=== PATIENT | female | born 1990 | race American Indian/Alaskan Native ===

== ENCOUNTER 2024-10-05 02:34 | Emergency (ER) | payer SELFPAY ==
[2024-10-05 02:34] VITALS: BMI 39.8
[2024-10-05 02:49] VITALS: BP 134/85; PULSE 70; RESP 16; TEMP 36.8; O2SAT 97
--- NOTE | 2024-10-05 03:05 | PD.EDBACK ---
ED Back Injury Pain RME/HPI General Chief Complaint: Back Pain/Injury Stated Complaint: SCIATIC NERVE PAIN Time Seen by Provider: 10/05/24 02:52 Arrival date/time: 10/05/24 02:34 34F with history of sciatica presents to ED with 2 days of low back pain that radiates down both legs. Patient states this feels similar to previous sciatic flares. Patient denies fall/trauma, paresthesia, bowel/bladder incontinence, hematuria/dysuria, leg swelling, and SOB. Limitations: no limitations Related Data Previous Rx's ?Medication ?Instructions ?Recorded cyclobenzaprine 5 mg tablet 5 mg PO TID PRN muscle spasm #30 10/05/24 tabs Allergies Allergy/AdvReac Type Severity Reaction Status Date / Time No Known Allergies Allergy Verified 10/05/24 02:36 Review of Systems Review of Systems Systems Reviewed: All systems reviewed, normal except as documented Constitutional Constitutional: Reports system reviewed and no additional complaints, except as documented, Denies fever(s) and Denies headache(s) ENT Ears, Nose, Mouth, and Throat: Denies disequilibrium and Denies headache(s) Cardiovascular Cardiovascular: Reports system reviewed and no additional complaints, except as documented, Denies chest pain and Denies dyspnea Respiratory Respiratory: Reports system reviewed and no additional complaints, except as documented, Denies cough and Denies dyspnea Gastrointestinal Gastrointestinal: Reports system reviewed and no additional complaints, except as documented, Denies abdominal pain, Denies nausea and Denies vomiting Musculoskeletal Musculoskeletal: Reports as per HPI, Reports back pain and Reports radiating pain into limb Neurologic Neurologic: Reports system reviewed and no additional complaints, except as documented, Denies confusion, Denies disequilibrium and Denies headache(s) Psychiatric Psychiatric: Denies confusion Past Medical History Social History SMOKING STATUS: Never smoker ED Exam General Limitations: Present no limitations General appearance: Present alert and in no apparent distress Head Head exam: Present atraumatic Eye Eye exam: Present normal appearance, PERRL and EOMI ENT ENT exam: Present normal exam, normal oropharynx and mucous membranes moist Neck Neck exam: Present normal inspection, full ROM and trachea midline Chest Chest inspection: Present normal inspection and symmetric chest wall rise Respiratory Respiratory exam: Present normal lung sounds bilaterally Cardiovascular Cardiovascular exam: Present regular rate, normal rhythm and normal heart sounds Abdominal Exam Abdominal exam: Present soft and normal bowel sounds Extremities Exam Extremities exam: Present normal inspection and full ROM Back Exam Back exam: Present normal inspection and full ROM Neurological Exam Neurological exam: Present alert, oriented X3 and CN II-XII intact Psychiatric Psychiatric exam: Present normal affect and normal mood Skin Skin exam: Present warm, dry, intact and normal color Course Quality Measures none Orders Category Date Time Status CYCLObenzaPRINE [Flexeril] Med 10/05/24 04:12 Discontinued 5 mg PO X1 ONE Gabapentin [Neurontin] Med 10/05/24 02:53 Discontinued 300 mg PO X1 ONE Ketorolac Inj [Toradol Inj] Med 10/05/24 02:53 Discontinued 60 mg IM X1 ONE Vital Signs Vital signs: Vital Signs Temperature 98.3 F 10/05/24 02:49 Pulse Rate 70 10/05/24 02:49 Respiratory Rate 16 10/05/24 02:49 Blood Pressure 134/85 H 10/05/24 02:49 Pulse Oximetry (%) 97 10/05/24 02:49 Oxygen Delivery Method Room Air 10/05/24 02:49 O2 at 97% on RA and WNLs Back Pain / Injury MDM Narrative MDM Narrative:: 34F with history of sciatica presents to ED with 2 days of low back pain that radiates down both legs. Patient states this feels similar to previous sciatic flares. Patient denies fall/trauma, paresthesia, bowel/bladder incontinence, hematuria/dysuria, leg swelling, and SOB. Physical exam reveals no back tenderness. Pain is with ROM, which is mostly intact. Gait normal. Normal lower extremity exam. Patient is afebrile, calm, and alert. Meds improved symptoms. Patient data External records reviewed:: [facility] previous records Clinical information provided by:: patient Social determinants that could affect healthcare access:: none Patient has the following chronic illnesses:: none How is presenting disease/condition affected by chronic disease/condition?: no chronic disease Evaluation data The following diagnostics were reviewed and interpreted by me:: other (specify) (none) Lab and/or radiology exams considered but not ordered:: not ordered Interpretation Summary: n/a Medications / Prescriptions Medications or Prescriptions considered but not ordered:: ordered Medication administrations:: Medication Administration History Discontinued Medications Cyclobenzaprine HCl (Cyclobenzaprine 5 Mg Tablet) 5 mg PO X1 ONE Stop: 10/05/24 04:13 Last Admin: 10/05/24 04:20 Dose: 5 mg Documented By: MELY Gabapentin (Gabapentin 300 Mg Capsule) 300 mg PO X1 ONE Stop: 10/05/24 02:54 Last Admin: 10/05/24 03:09 Dose: 300 mg Documented By: MELY Ketorolac Tromethamine (Ketorolac Inj 60 Mg/2 Ml Vial) 60 mg IM X1 ONE Stop: 10/05/24 02:54 Last Admin: 10/05/24 03:09 Dose: 60 mg Documented By: MELY above Consultations Consultation(s) initiated? (list below): No Diagnosis Differential diagnosis back pain/injury: lumbar radiculopathy, sciatica, strain of lumbar region, renal colic, pyelonephritis, thoracic back pain, AAA and discitis Most likely diagnosis given after review of the tests above:: sciatica Admission Indicated Admission indicated?: not indicated Admission Request Was there a request for admission?: No Disposition Plan Disposition Plan: Discharge Discharge Attestation Discharge Attestation: The patient and all family members were given an opportunity to ask questions and understood the discharge instructions. Discharge instructions specifically effects, indications for sooner follow up or return to the emergency department, and the expected course of current diagnosis. Patient condition: Stable Discharge Plan Plan Patient Disposition: HOME (Self Care) Disposition Comment: STable Prescriptions/Referrals Prescriptions/Med Rec: New cyclobenzaprine 5 mg tablet 5 mg PO TID PRN (Reason: muscle spasm) Qty: 30 0RF Problem List Clinical Impression: Sciatica Patient/Caregiver Discharge Instructions Education Materials: ED Sciatica Additional Instructions: Please follow-up with PCP within 24-48 hours and return immediately if symptoms worsen. If problem persists, recommend outpatient PT and/or MRI follow-up. In the meantime, rest, use ice/heat, and/or compression. Print Language: [place] Stand Alone Forms: Patient Portal Info Letter PA/MULTIMEDIA PROJECT MANAGER Supervising Physician ISHMAEL/MULTIMEDIA PROJECT MANAGER Supervising Physician: Dr. Dobson
[2024-10-05] MEDS: KETOROLAC INJ 60 MG/2 ML VIAL IM (03:09)
[2024-10-05] MEDS: GABAPENTIN 300 MG CAPSULE PO (03:09)
[2024-10-05] MEDS: CYCLObenzaPRINE 5 MG TABLET PO (04:20)
== END 2024-10-05 05:11 | disposition home or self-care (01) ==
LOC: SERX 07:25
PROVIDERS: Emergency Provider Emergency Medicine
DX: M54.42 Lumbago with sciatica, left side (principal); M54.41 Lumbago with sciatica, right side
CPT/HCPCS: 96372; 99283; J1885; A9270

== ENCOUNTER 2024-10-07 01:55 | Emergency (ER) | payer BC, SELFPAY ==
[2024-10-07 01:55] VITALS: BMI 38.9
[2024-10-07 02:50] VITALS: BP 138/89; PULSE 72; RESP 17; TEMP 37; O2SAT 97
--- NOTE | 2024-10-07 03:19 | XR_ITS ---
Examination: CT lumbar spine, without contrast. 2-D sagittal reconstructions. 2-D coronal reconstructions. 3-D reconstructions. Date and time of exam:October 07, 2024 0451 hours INDICATIONS: Onset lower back pain beginning 5 days ago CTDI: vol (mGy):33.6 DLP: (mGycm):898 Technique: Multiple 1.25 mm axial sections of the lumbar spine without intravenous contrast have been obtained. 2-D sagittal and coronal reconstructions have been obtained. 3-D reconstructions have been obtained. Low dose protocols were performed. One or more of the following dose reduction techniques were used; automated exposure control, adjustment of the mA and/or KV according to patient size, use of iterative reconstruction technique. Findings: Adequate alignment lumbar vertebral bodies Mild disc narrowing L3-L4, L4-L5 No lumbar fracture No spondylolisthesis Lumbar pedicles laminated transverse and posterior spinous processes intact L5-S1 4 mm central lumbar disc bulge contiguous with the bilateral S1 nerve roots L4-L5 6 mm right paracentral disc bulge displacing the right L5 nerve root More cephalad levels unremarkable IMPRESSION: No lumbar fracture L5-S1 4 mm central lumbar disc bulge contiguous with the right and left S1 nerve roots L4-L5 6 mm right paracentral disc bulge displacing the right L5 nerve root
--- NOTE | 2024-10-07 03:26 | PD.EDRME ---
Rapid Medical Screening Exam [facility] Arrival date/time: 10/07/24 01:55 34F with history of sciatica presents to ED with several days of low back pain that radiates down both legs. Patient states this feels similar to previous sciatic flares including yesterday (under different ). Patient states while meds helped initially ED, today it is worse. Patient denies fall/trauma, paresthesia, bowel/bladder incontinence, hematuria/dysuria, leg swelling, and SOB. Chief Complaint: Back Pain/Injury Vital signs: Vital Signs Temperature 98.6 F 10/07/24 02:50 Pulse Rate 72 10/07/24 02:50 Respiratory Rate 17 10/07/24 02:50 Blood Pressure 138/89 H 10/07/24 02:50 Pulse Oximetry (%) 97 10/07/24 02:50 Oxygen Delivery Method Room Air 10/07/24 02:50
[2024-10-07] MEDS: HYDROcodone/APAP 5/325 TABLET 1 TAB PO (03:56)
[2024-10-07] MEDS: DIAZEPAM 5 MG TABLET PO (03:56)
[2024-10-07 04:37] LABS: HCG Qualitative,Urine Negative
--- NOTE | 2024-10-07 05:19 | PRELIM_ITS ---
CT scan of the lumbar spine without intravenous contrast (axial sections with sagittal and coronal re formats) October 07, 2024 at 0451 hours Clinical History: Pain and reduced mobility; no fall/trauma Comparison: No prior study is available for comparison. Findings:There is no acute lumbar fracture or traumatic subluxation. The paravertebral soft tissues are unremarkable. Moderate size L4-L5 posteri or disc protrusion, may impinge the right lateral recess. Small L5-S1 posterior disc protrusion. No central canal stenosis.Impression:1. No evidence of acute lumbar fracture or traumatic subluxation.2 . Moderate-sized L4-L5 posterior disc protrusion with possible impingement of the right L5 nerve root . Consider MRI for further evaluation if clinically indicated. Report Electronically Signed By: Fausto Rooney 10/07/2024 5:19:10 AM [EST]
--- NOTE | 2024-10-07 06:28 | PD.EDBACK ---
ED Back Injury Pain RME/HPI General Chief Complaint: Back Pain/Injury Stated Complaint: lower back pain Time Seen by Provider: 10/07/24 06:15 Arrival date/time: 10/07/24 01:55 34F with history of sciatica presents to ED with several days of low back pain that radiates down both legs. Patient states this feels similar to previous sciatic flares including yesterday (under different ). Patient states while meds helped initially ED, today it is worse. Patient denies fall/trauma, paresthesia, bowel/bladder incontinence, hematuria/dysuria, leg swelling, and SOB. Limitations: no limitations RME / HPI RME / HPI Narrative: 10/07/24 01:55 34F with history of sciatica presents to ED with several days of low back pain that radiates down both legs. Patient states this feels similar to previous sciatic flares including yesterday (under different ). Patient states while meds helped initially ED, today it is worse. Patient denies fall/trauma, paresthesia, bowel/bladder incontinence, hematuria/dysuria, leg swelling, and SOB. Related Data Previous Rx's ?Medication ?Instructions ?Recorded diazepam 10 mg tablet (Valium) 10 mg PO BID spasm #10 tabs 07/05/19 naproxen 500 mg tablet (Naprosyn) 500 mg PO BID PRN pain #60 tabs 07/05/19 cyclobenzaprine 10 mg tablet 10 mg PO TID PRN muscle spasm 10 10/07/24 days #30 tab-caps hydrocodone 5 mg-acetaminophen 325 1 tab PO BID PRN pain #10 tabs 10/07/24 mg tablet ibuprofen 800 mg tablet 800 mg PO TID PRN pain #30 tabs 10/07/24 Allergies Allergy/AdvReac Type Severity Reaction Status Date / Time No Known Allergies Allergy Verified 10/07/24 06:30 Review of Systems Review of Systems Systems Reviewed: All systems reviewed, normal except as documented Constitutional Constitutional: Reports system reviewed and no additional complaints, except as documented, Denies fatigue, Denies fever(s) and Denies headache(s) Eyes Eyes: Reports system reviewed and no additional complaints, except as documented and Denies blurry vision ENT Ears, Nose, Mouth, and Throat: Reports system reviewed and no additional complaints, except as documented, Denies headache(s), Denies nasal congestion and Denies nasal discharge Cardiovascular Cardiovascular: Reports system reviewed and no additional complaints, except as documented, Denies chest pain and Denies dyspnea Respiratory Respiratory: Reports system reviewed and no additional complaints, except as documented, Denies chest congestion, Denies cough and Denies dyspnea Gastrointestinal Gastrointestinal: Reports system reviewed and no additional complaints, except as documented and Denies abdominal pain Genitourinary Genitourinary: Reports system reviewed and no additional complaints, except as documented, Denies flank pain, Denies hematuria and Denies pelvic pain Musculoskeletal Musculoskeletal: Reports system reviewed and no additional complaints, except as documented, Denies abnormal gait, Reports back pain, Denies numbness, Denies stiffness and Denies tingling Integumentary/Breasts Skin/Breast: Reports system reviewed and no additional complaints, except as documented and Denies rash Neurologic Neurologic: Reports system reviewed and no additional complaints, except as documented, Reports as per HPI, Denies abnormal gait, Denies headache(s), Denies numbness and Denies tingling Psychiatric Psychiatric: Reports system reviewed and no additional complaints, except as documented and Denies anxiety Endocrine Endocrine: Denies fatigue Past Medical History Social History SMOKING STATUS: Never smoker ED Exam General Limitations: Present no limitations General appearance: Present alert and in no apparent distress Head Head exam: Present atraumatic Eye Eye exam: Present normal appearance, PERRL and EOMI; Absent conjunctival injection ENT ENT exam: Present normal exam, normal oropharynx and mucous membranes moist Neck Neck exam: Present normal inspection, full ROM and trachea midline Chest Chest inspection: Present normal inspection and symmetric chest wall rise Respiratory Respiratory exam: Present normal lung sounds bilaterally; Absent respiratory distress Cardiovascular Cardiovascular exam: Present regular rate, normal rhythm and normal heart sounds Abdominal Exam Abdominal exam: Present soft and normal bowel sounds; Absent distention, tenderness, guarding, rebound or rigidity Extremities Exam Extremities exam: Present normal inspection and full ROM Back Exam Back exam: Present normal inspection, full ROM, tenderness, muscle spasm and paraspinal tenderness; Absent CVA tenderness (R) or CVA tenderness (L) Neurological Exam Neurological exam: Present alert, oriented X3 and CN II-XII intact Psychiatric Psychiatric exam: Present normal affect and normal mood Skin Skin exam: Present warm, dry, intact and normal color Course Quality Measures none Orders Category Date Time Status CT lumbar spine wo con Stat Exams 10/07/24 03:19 Taken HCG Qualitative,Urine Stat Lab 10/07/24 03:59 Completed Diazepam [Valium] Med 10/07/24 03:27 Discontinued 5 mg PO X1 ONE HYDROcodone*/APAP 5/325 [[place] 5/325] Med 10/07/24 03:19 Discontinued 1 tab PO X1 ONE Vital Signs Vital signs: Vital Signs Temperature 98.6 F 10/07/24 02:50 Pulse Rate 72 10/07/24 02:50 Respiratory Rate 17 10/07/24 02:50 Blood Pressure 138/89 H 10/07/24 02:50 Pulse Oximetry (%) 97 10/07/24 02:50 Oxygen Delivery Method Room Air 10/07/24 02:50 O2 saturation 97% room air within normal limits Back Pain / Injury MDM Narrative MDM Narrative:: 34F with history of sciatica presents to ED with several days of low back pain that radiates down both legs. Patient states this feels similar to previous sciatic flares including yesterday (under different ). Patient states while meds helped initially ED, today it is worse. Patient denies fall/trauma, paresthesia, bowel/bladder incontinence, hematuria/dysuria, leg swelling, and SOB. At time my initial encounter with this patient patient walks with steady gait patient does not appear ill or toxic I reviewed the patient CT scan patient has lumbar disc bulge consistent with symptoms Patient given copy of her CT report instructed to follow-up given outpatient MRI and follow-up with specialist for further evaluation For emergent concerns patient instructed to return immediately Patient data External records reviewed:: [facility] previous records Clinical information provided by:: patient Social determinants that could affect healthcare access:: none Patient has the following chronic illnesses:: none How is presenting disease/condition affected by chronic disease/condition?: no chronic disease Evaluation data The following diagnostics were reviewed and interpreted by me:: lab results and radiology exam(s) Lab and/or radiology exams considered but not ordered:: Labs and radiology obtained Interpretation Summary: Reviewed by me Medications / Prescriptions Medications or Prescriptions considered but not ordered:: Given Medication administrations:: Medication Administration History Discontinued Medications Hydrocodone Bitart/Acetaminophen (Hydrocodone/Apap 5/325 Tablet) 1 tab PO X1 ONE Stop: 10/07/24 03:20 Last Admin: 10/07/24 03:56 Dose: 1 tab Documented By: NEGRITO Diazepam (Diazepam 5 Mg Tablet) 5 mg PO X1 ONE Stop: 10/07/24 03:28 Last Admin: 10/07/24 03:56 Dose: 5 mg Documented By: NEGRITO Given Consultations Consultation(s) initiated? (list below): No Diagnosis Differential diagnosis back pain/injury: lumbar radiculopathy, strain of lumbar region and discitis Most likely diagnosis given after review of the tests above:: Lumbar disc bulge Admission Indicated Admission indicated?: not indicated Admission Request Was there a request for admission?: No Disposition Plan Disposition Plan: Discharge Discharge Attestation Discharge Attestation: The patient and all family members were given an opportunity to ask questions and understood the discharge instructions. Discharge instructions specifically effects, indications for sooner follow up or return to the emergency department, and the expected course of current diagnosis. Patient condition: Stable Discharge Plan Plan Patient Disposition: HOME (Self Care) Prescriptions/Referrals Prescriptions/Med Rec: New cyclobenzaprine 10 mg tablet 10 mg PO TID PRN (Reason: muscle spasm) 10 Days Qty: 30 0RF ibuprofen 800 mg tablet 800 mg PO TID PRN (Reason: pain) Qty: 30 0RF hydrocodone-acetaminophen 5-325 mg tablet 1 tab PO BID MDD 10 PRN (Reason: pain) Qty: 10 0RF No Action diazepam [Valium] 10 mg tablet 10 mg PO BID Qty: 10 0RF naproxen [Naprosyn] 500 mg tablet 500 mg PO BID PRN (Reason: pain) Qty: 60 0RF Referrals: Sera Hopper PA-C [Primary Care Provider] - In 1 week Problem List Clinical Impression: Bulging lumbar disc Patient/Caregiver Discharge Instructions Education Materials: How Your Back Works, Relieving Back Pain Additional Instructions: Please follow up with your primary care doctor in the next 24-48hrs for any worsening symptoms return here immediately Print Language: [place]istan[place] Stand Alone Forms: [employer] Info., Work/School Release, Patient Portal Info Letter PA/MALATHI Supervising Physician PA/MALATHI Supervising Physician: Dr. Palacios
== END 2024-10-07 06:28 | disposition home or self-care (01) ==
PROVIDERS: Physician Assistant; Emergency Provider Emergency Medicine; PCP Physician Assistant
DX: M51.360 Other intervertebral disc degeneration, lumbar region with discogenic back pain only (principal)
CPT/HCPCS: 72131; 81025; 99284; A9270